=== PATIENT | male | born 1960 | race Asian ===

== ENCOUNTER 2017-02-09 11:04 | Outpatient (CLI) | payer BC, OTHER ==
[~2017-02-09 11:04] MED LIST: ASPIR-8181 MG OR; ASTEPRO0.15 %; AZOR1 TA1 OR; BETAMETH DIP0.05 % TOP; CELESTONE OR; CHLORTHALID25 MG PO; HYDROCHLOROT12.5 M1 OR; LORTAB1 TA1 PO; OPTIVAR0.05 % OP; OPTIVAR0.05 % OPTH; PEPCID40 MG OR; SIMV40TA57; SIMV40TA57 OR; SINGULAIR10 MG PO; TESTOST CYP200 MG/ML IM; TRIAMCINOLON0.12 EX
[2017-02-09 11:54] LABS: SODIUM 138 mmol/L (136-145)
[2017-02-09 12:02] LABS: PLATELET COUNT 185 K/uL (142-355)
== END 2017-02-09 19:12 | disposition home or self-care (01) ==
LOC: LABW 11:04
PROVIDERS: Family Medicine
DX: M79.671 Pain in right foot (principal); Z79.890 Hormone replacement therapy; E55.9 Vitamin D deficiency, unspecified; I10 Essential (primary) hypertension; G47.33 Obstructive sleep apnea (adult) (pediatric); K21.9 Gastro-esophageal reflux disease without esophagitis; E83.39 Other disorders of phosphorus metabolism; Z12.5 Encounter for screening for malignant neoplasm of prostate
CPT/HCPCS: 36415; 80053; 80061; 81000; 82043; 82306; 82570; 83735; 84550; 85027; G0103

== ENCOUNTER 2017-10-05 14:06 | Outpatient (CLI) | payer BC, OTHER | END 2017-10-05 15:10 | disposition home or self-care (01) | LOC: RAD 14:06 | DX: M25.522 Pain in left elbow (principal) ==

== ENCOUNTER 2018-01-22 07:42 | Day surgery (SDC) | payer BC, OTHER ==
[~2018-01-22] VITALS: Ht 30.5 cm; Wt 0.5 kg
[2018-01-22 08:13] LABS: PLATELET COUNT 174 K/uL (142-355)
[2018-01-22 08:20] LABS: POTASSIUM 3.8 mmol/L (3.6-5.2)
== END 2018-01-22 12:10 | disposition home or self-care (01) ==
LOC: OR 07:42
PROVIDERS: Student in an Organized Health Care Education/Training Program
PROC: 0RBP0ZZ Excision of Left Wrist Joint, Open Approach (ICD-10-PCS; principal; 2018-01-22)
DX: M67.432 Ganglion, left wrist (principal)
CPT/HCPCS: 80053; 85027; J0690; J1170; J2001; J2250; J2704; J3010; J3490

== ENCOUNTER 2018-04-19 07:18 | Outpatient (CLI) | payer BC, OTHER | END 2018-04-19 19:03 | disposition home or self-care (01) | LOC: RAD 07:18 | DX: M25.512 Pain in left shoulder (principal); M54.2 Cervicalgia ==

== ENCOUNTER 2018-08-16 13:26 | Outpatient (CLI) | payer BC, OTHER ==
[2018-08-16 14:28] LABS: PLATELET COUNT 180 K/uL (142-355)
[2018-08-16 14:41] LABS: POTASSIUM 4.1 mmol/L (3.6-5.2)
== END 2018-08-16 19:33 | disposition home or self-care (01) ==
LOC: LABW 13:26
PROVIDERS: Internal Medicine Gastroenterology
DX: K92.1 Melena (principal)
CPT/HCPCS: 36415; 80053; 85027

== ENCOUNTER 2018-08-21 10:03 | Outpatient (CLI) | payer BC, OTHER | END 2018-08-21 19:49 | disposition home or self-care (01) | LOC: LABW 10:03 | DX: K92.1 Melena (principal) | CPT/HCPCS: 82272 ==

== ENCOUNTER 2019-07-30 10:41 | Outpatient (CLI) | payer BC, OTHER | END 2019-07-30 22:58 | disposition home or self-care (01) | LOC: RESP 10:41 | DX: R42 Dizziness and giddiness (principal); R53.83 Other fatigue; I10 Essential (primary) hypertension | CPT/HCPCS: 93005 ==

== ENCOUNTER 2019-08-22 15:55 | Outpatient (CLI) | payer BC, OTHER | END 2019-08-22 22:04 | disposition home or self-care (01) | LOC: US 15:55 | DX: R42 Dizziness and giddiness (principal); R53.83 Other fatigue; I10 Essential (primary) hypertension; E78.2 Mixed hyperlipidemia ==

== ENCOUNTER 2019-09-02 13:59 | Outpatient (CLI) | payer BC, OTHER | END 2019-09-02 19:36 | disposition home or self-care (01) | LOC: RAD 13:59 | DX: M25.551 Pain in right hip (principal); M54.10 Radiculopathy, site unspecified ==

== ENCOUNTER 2020-11-10 15:49 | Outpatient (CLI) | payer BC, OTHER | END 2020-11-10 23:58 | disposition home or self-care (01) | LOC: RAD 15:49 | PROVIDERS: ATTEND Family Medicine | DX: R06.02 Shortness of breath (principal); R05 Cough ==

== ENCOUNTER 2021-02-13 14:51 | Outpatient (CLI) | payer BC, OTHER | END 2021-02-13 19:09 | disposition home or self-care (01) | LOC: RAD 14:51 | PROVIDERS: ATTEND Family Medicine | DX: M25.562 Pain in left knee (principal) ==

== ENCOUNTER 2021-04-01 10:40 | Outpatient (CLI) | payer BC, OTHER | END 2021-04-01 19:09 | disposition home or self-care (01) | LOC: RAD 10:40 | PROVIDERS: ATTEND Family Medicine | DX: R05 Cough (principal); R06.02 Shortness of breath ==

== ENCOUNTER 2021-04-06 09:25 | Outpatient (CLI) | payer BC, OTHER ==
[2021-04-06 10:07] LABS: PLATELET COUNT 166 K/uL (142-355)
== END 2021-04-06 22:19 | disposition home or self-care (01) ==
LOC: LABW 09:25
PROVIDERS: ATTEND Family Medicine
DX: I10 Essential (primary) hypertension (principal); R73.03 Prediabetes; G47.33 Obstructive sleep apnea (adult) (pediatric); E78.00 Pure hypercholesterolemia, unspecified; M25.562 Pain in left knee; L40.9 Psoriasis, unspecified; M79.644 Pain in right finger(s); E55.9 Vitamin D deficiency, unspecified; Z20.2 Contact with and (suspected) exposure to infections with a predominantly sexual mode of transmission
CPT/HCPCS: 36415; 80053; 80061; 81000; 82306; 83036; 84439; 84443; 84550; 85027; 86592; 86695; 86696; 87535; G0432

== ENCOUNTER 2021-06-15 11:56 | Outpatient (CLI) | payer BC, OTHER ==
[2021-06-15 12:11] LABS: PLATELET COUNT 189 K/uL (142-355)
== END 2021-06-15 19:11 | disposition home or self-care (01) ==
LOC: LABW 11:56
PROVIDERS: ATTEND Physician Assistant
DX: J45.30 Mild persistent asthma, uncomplicated (principal)
CPT/HCPCS: 36415; 82785; 85027; 86003

== ENCOUNTER 2021-12-01 15:27 | Outpatient (CLI) | payer BC, OTHER | END 2021-12-01 19:19 | disposition home or self-care (01) | LOC: RAD 15:27 | PROVIDERS: ATTEND Family Medicine | DX: M79.641 Pain in right hand (principal); M79.644 Pain in right finger(s); W19.XXXA Unspecified fall, initial encounter ==

== ENCOUNTER 2022-08-18 10:44 | Outpatient (CLI) | payer BC, OTHER ==
[2022-08-18 12:55] LABS: PLATELET COUNT 205 K/uL (142-355)
[2022-08-18 13:06] LABS: POTASSIUM 4.2 mmol/L (3.6-5.2)
== END 2022-08-18 19:30 | disposition home or self-care (01) ==
LOC: LABW 10:44
PROVIDERS: ATTEND Nurse Practitioner Family
DX: L20.89 Other atopic dermatitis (principal); L43.0 Hypertrophic lichen planus; Z79.899 Other long term (current) drug therapy
CPT/HCPCS: 36415; 80053; 80061; 80074; 85027

== ENCOUNTER 2022-08-21 16:36 | Outpatient (CLI) | payer BC, OTHER | END 2022-08-21 19:40 | disposition home or self-care (01) | LOC: LABW 16:36 | PROVIDERS: ATTEND Nurse Practitioner Family | DX: L20.89 Other atopic dermatitis (principal); L43.0 Hypertrophic lichen planus | CPT/HCPCS: 36415; 86480 ==

== ENCOUNTER 2022-09-04 16:24 | Outpatient (CLI) | payer BC, OTHER | END 2022-09-04 20:04 | disposition home or self-care (01) | LOC: LAB 16:24 → LABW 16:24 → LAB 20:04 | PROVIDERS: ATTEND Nurse Practitioner Family | DX: L20.89 Other atopic dermatitis (principal); L43.0 Hypertrophic lichen planus | CPT/HCPCS: 86480 ==

== ENCOUNTER 2022-09-21 13:32 | Outpatient (CLI) | payer BC, OTHER | END 2022-09-21 19:06 | disposition home or self-care (01) | LOC: RAD 13:32 | PROVIDERS: ATTEND Nurse Practitioner Family | DX: L20.89 Other atopic dermatitis (principal); Z79.899 Other long term (current) drug therapy ==

== ENCOUNTER 2022-09-26 09:51 | Outpatient (CLI) | payer BC, OTHER | END 2022-09-26 19:37 | disposition home or self-care (01) | LOC: LABW 09:51 | PROVIDERS: ATTEND Nurse Practitioner Family | DX: L43.0 Hypertrophic lichen planus (principal) | CPT/HCPCS: 36415; 86592; 87535; G0432 ==

== ENCOUNTER 2023-02-02 11:07 | Outpatient (CLI) | payer BC, OTHER ==
[2023-02-02 11:35] LABS: POTASSIUM 3.9 mmol/L (3.6-5.2)
[2023-02-02 11:47] LABS: PLATELET COUNT 189 K/uL (142-355)
== END 2023-02-02 19:17 | disposition home or self-care (01) ==
LOC: LABW 11:07
PROVIDERS: ATTEND Nurse Practitioner Family
DX: L20.89 Other atopic dermatitis (principal)
CPT/HCPCS: 36415; 80053; 80061; 85027

== ENCOUNTER 2023-05-30 13:26 | Outpatient (CLI) | payer BC, OTHER | END 2023-05-30 19:50 | disposition home or self-care (01) | LOC: RESP 13:26 | PROVIDERS: ATTEND Internal Medicine Pulmonary Disease | DX: J45.30 Mild persistent asthma, uncomplicated (principal) ==